=== PATIENT | female | born 1970 | race Asian ===

== ENCOUNTER 2017-08-22 18:53 | Emergency (ER) | payer OTHER ==
[2017-08-22 19:15] VITALS: BP 135/82
[2017-08-22] MEDS ORDERED: Nitrofurantoin Macrocrystals* 50 MG CAP PO ONE (19:52)
[2017-08-22] MEDS ORDERED: Acetaminophen TAB* 325 MG PO ONE (19:52)
--- NOTE | 2017-08-22 19:58 | UC ---
Complaint Female HPI - HPI Summary HPI Summary: 46 year old female here with dysuria and urgency since yesterday. She reports feeling discomfort last night and today developed urgency and frequency. Reports suprapubic pain but no flank pain or back pain. No fever or chills. - History Of Current Complaint Chief Complaint: UCGU Stated Complaint: UNCOMFORTABLE URINATION Time Seen by Provider: 08/22/17 19:31 Hx Obtained From: Patient Hx Last Menstrual Period: 08/18/17 Onset/Duration: Gradual Onset Timing: Constant Severity Initially: Mild Aggravating Factor(s): Urination Alleviating Factor(s): Nothing Associated Signs And Symptoms: Positive: Negative - Allergies/Home Medications Allergies/Adverse Reactions: Allergies Allergy/AdvReac Type Severity Reaction Status Date / Time Amoxicillin Allergy Diarrhea Verified 08/22/17 19:16 Aspirin Allergy Nausea And Verified 08/22/17 19:16 Vomiting PMH/Surg Hx/FS Hx/Imm Hx - Surgical History Surgical History: None - Social History Alcohol Use: None Substance Use Type: None Smoking Status (MU): Never Smoked Tobacco Review of Systems Genitourinary: Dysuria, Frequency, Urgency All Other Systems Reviewed And Are Negative: Yes Physical Exam Triage Information Reviewed: Yes Appearance: Well-Appearing, No Pain Distress Vital Signs: Initial Vital Signs Temp 36.6 C 08/22/17 19:10 Pulse 68 08/22/17 19:10 Resp 18 08/22/17 19:10 BP 135/82 08/22/17 19:10 ENT Exam: Normal Neck: Positive: Supple, Nontender, No Lymphadenopathy Respiratory: Positive: Chest non-tender, Lungs clear, Normal breath sounds, No respiratory distress Cardiovascular: Positive: RRR, No Murmur Abdomen Description: Positive: Other: - supra pubic tenderness with no guarding. Negative: CVA Tenderness (R), CVA Tenderness (L) Skin Exam: Normal Complaint Female Dx - Course Course Of Treatment: patient with signs and symptoms c/w UTI. She has blood in the urine but history and physical no concernn for renal colic. - Differential Dx/Diagnosis Differential Diagnosis/HQI/PQRI: Renal Colic, Ureteral Stone, Urinary Tract Infection Provider Diagnoses: Urinary tract infection Discharge - Discharge Plan Condition: Good Disposition: HOME Prescriptions: Nitrofurantoin Monohyd Macro [Macrobid] 100 mg PO BID #20 cap Patient Education Materials: Urinary Tract Infection in Women (ED) Referrals: No Primary Care Phys,NOPCP [Primary Care Provider] - Additional Instructions: patient walked out before she got her discharge papers and dose of abx. We called and told her to go to the pharmacy to waste picker her rx.
[2017-08-22] MEDS ORDERED: Acetaminophen TAB* 325 MG PO PRN (20:03)
== END 2017-08-22 20:00 | disposition home or self-care (01) ==
LOC: UCEAST 18:53
DX: N39.0 Urinary tract infection, site not specified (principal); R31.9 Hematuria, unspecified; Z88.6 Allergy status to analgesic agent; Z88.1 Allergy status to other antibiotic agents
CPT/HCPCS: 81003; 87077; 87086; 87186; 99202; A9270-GY; G0463

== ENCOUNTER 2018-05-29 14:53 | Emergency (ER) | payer OTHER ==
[2018-05-29 15:07] VITALS: BP 129/77
--- NOTE | 2018-05-29 15:09 | UC ---
Lower Extremity/Ankle HPI - HPI Summary HPI Summary: 47 yo female presents with left great toe injury. She tells me that early this morning she was feeding her dog and dropped his metal dog dish on her big toe. Has had pain in her toe since that time. She is ambulatory, but says she is walking more on her heel due to pain. Denies numbness or tingling. - History of Current Complaint Chief Complaint: UCLowerExtremity Stated Complaint: TOE INJURY Time Seen by Provider: 05/29/18 15:09 Hx Obtained From: Patient Hx Last Menstrual Period: 05/08/18 Severity Initially: Severe Severity Currently: Severe Pain Intensity: 8 Pain Scale Used: 0-10 Numeric Aggravating Factor(s): Standing, Ambulation Alleviating Factor(s): Rest Able to Bear Weight: Yes - Allergies/Home Medications Allergies/Adverse Reactions: Allergies Allergy/AdvReac Type Severity Reaction Status Date / Time amoxicillin Allergy Diarrhea Verified 05/29/18 15:08 aspirin Allergy Nausea And Verified 05/29/18 15:08 Vomiting Home Medications: Home Medications Ibuprofen TAB* [Motrin TAB* 400 MG] 400 mg PO Q6HR PRN 05/29/18 [History Confirmed 05/29/18] PMH/Surg Hx/FS Hx/Imm Hx - Additional Past Medical History Additional PMH: None - Surgical History Surgical History: None - Family History Known Family History: Positive: None - Social History Occupation: Employed Full-time Lives: With Family Alcohol Use: None Substance Use Type: None Smoking Status (MU): Never Smoked Tobacco Review of Systems Constitutional: Negative Skin: Negative Respiratory: Negative Cardiovascular: Negative Musculoskeletal: Other: - Left great toe pain Neurological: Negative Psychological: Negative All Other Systems Reviewed And Are Negative: Yes Physical Exam - Summary Physical Exam Summary: GENERAL: NAD. WDWN. No pain distress. SKIN: No rashes, sores, lesions, or open wounds. CHEST: No accessory muscle use. Breathing comfortably and in no distress. CV: Pulses intact PT and DP. Cap refill <2seconds MSK: LEFT GREAT TOE: Moderate TTP along joint line. FROM with mild pain. No edema. Mild ecchymosis at cuticle. Nail intact. NEURO: Alert. Sensations intact and symmetric B/L LEs PSYCH: Age appropriate behavior. Triage Information Reviewed: Yes Vital Signs: Initial Vital Signs Temp 98.8 F 05/29/18 15:02 Pulse 57 05/29/18 15:02 Resp 16 05/29/18 15:02 BP 129/77 05/29/18 15:02 Pulse Ox 100 05/29/18 15:02 Vital Signs Reviewed: Yes Lower Extremity Course/Dx - Course Course Of Treatment: XR: IMPRESSION: No fracture of the left great toe is noted. Toe vanita taped and post-op shoe provided. Advised to ice the toe and may take ibuprofen prn pain - Differential Dx/Diagnosis Provider Diagnoses: Left great toe pain Discharge - Sign-Out/Discharge Documenting (check all that apply): Patient Departure All imaging exams completed and their final reports reviewed: Yes - Discharge Plan Condition: Stable Disposition: HOME Patient Education Materials: Contusion in Adults (ED) Referrals: No Primary Care Phys,NOPCP [Primary Care Provider] - Additional Instructions: If you develop a fever, shortness of breath, chest pain, new or worsening symptoms - please call your PCP or go to the ED. 1) Rest, Ice, and elevate your foot as much as possible to reduce pain and swelling - Billing Disposition and Condition Condition: STABLE Disposition: Home
--- NOTE | 2018-05-29 15:33 | RAD ---
Indication: Left great toe injury. 3 views of left great toe demonstrates no fracture. No other bone or joint abnormality is identified. No other bone or joint abnormality is noted. IMPRESSION: No fracture of the left great toe is noted.
== END 2018-05-29 16:09 | disposition home or self-care (01) ==
LOC: UCEAST 14:53
DX: M79.675 Pain in left toe(s) (principal); Z88.6 Allergy status to analgesic agent; Z88.0 Allergy status to penicillin
CPT/HCPCS: 99212; G0463

== ENCOUNTER 2019-02-25 00:24 | Emergency (ER) | payer OTHER ==
[2019-02-25] MEDS ORDERED: ALPRAZolam TAB* 0.5 MG PO ONE (01:51)
--- NOTE | 2019-02-25 01:56 | ED ---
HPI Chest Pain - HPI Summary HPI Summary: This patient is a 48 year old F presenting to [facility] accompanied by with a chief complaint of chest pain since the morning of 02/24/19. Pt woke up in the morning and had chest pain, then she went on a walk and said her pain was alleviated. However after going back home at 2030 her pain came back. So she went to take a shower and go to sleep but instead she felt more alert, nervous, and was trembling. She describes the pain as aching. Pt reports that the pain is constant, has a stiff upper back and neck and that she had trouble breathing. She has no home medications. She notes one prior episode of a panic attack. She has no personal or family history of cardiac disease. - History of Current Complaint Chief Complaint: EDChestPainROMI Time Seen by Provider: 02/25/19 01:35 Hx Obtained From: Patient Hx Last Menstrual Period: 05/08/18 Onset/Duration: Started Hours Ago - Began morning of 02/24/19, Still Present Timing: Lasting Hours Initial Severity: Moderate Current Severity: Moderate Pain Intensity: 5 Pain Scale Used: 0-10 Numeric Chest Pain Location: Diffuse Character: Dull/Aching Aggravating Factor(s): Nothing Alleviating Factor(s): Nothing Associated Signs and Symptoms: Positive: Anxiety, Shortness of Breath, Other: - positive: trembling - Allergy/Home Medications Allergies/Adverse Reactions: Allergies Allergy/AdvReac Type Severity Reaction Status Date / Time amoxicillin Allergy Diarrhea Verified 02/25/19 01:54 aspirin Allergy Nausea And Verified 02/25/19 01:54 Vomiting PMH/Surg Hx/FS Hx/Imm Hx Endocrine/Hematology History: Denies: Hx Diabetes, Hx Thyroid Disease Cardiovascular History: Denies: Hx Hypertension Respiratory History: Denies: Hx Asthma, Hx Chronic Obstructive Pulmonary Disease (COPD) GI History: Denies: Hx Ulcer Infectious Disease History: No Infectious Disease History: Denies: Hx Clostridium Difficile, Hx Hepatitis, Hx Human Immunodeficiency Virus (HIV), Hx of Known/Suspected MRSA, Hx Shingles, Hx Tuberculosis, Hx Known/ Suspected VRE, Hx Known/Suspected VRSA, History Other Infectious Disease, Traveled Outside the [place] in Last 30 Days - Family History Known Family History: Negative: Cardiac Disease - Social History Alcohol Use: None Substance Use Type: Reports: None Smoking Status (MU): Never Smoked Tobacco Review of Systems Positive: Other - positive:trembling Positive: Chest Pain Positive: Shortness Of Breath Positive: Other - Positive: Stiff Upper Back and Neck Positive: Anxious All Other Systems Reviewed And Are Negative: Yes Physical Exam - Summary Physical Exam Summary: VITAL SIGNS: Reviewed. GENERAL: Patient is a well-developed and nourished female who is lying comfortable in the stretcher. Patient is not in any acute respiratory distress. HEAD AND FACE: No signs of trauma. No ecchymosis, hematomas or skull depressions. No sinus tenderness. EYES: PERRLA, EOMI x 2, No injected conjunctiva, no nystagmus. EARS: Hearing grossly intact. Ear canals and tympanic membranes are within normal limits. MOUTH: Oropharynx within normal limits. NECK: Supple, trachea is midline, no adenopathy, no JVD, no carotid bruit, no c- spine tenderness, neck with full ROM CHEST: Symmetric, no tenderness at palpation LUNGS: Clear to auscultation bilaterally. No wheezing or crackles. CVS: Regular rate and rhythm, S1 and S2 present, no murmurs or gallops appreciated. ABDOMEN: Soft, non-tender. No signs of distention. No rebound no guarding, and no masses palpated. Bowel sounds are normal. EXTREMITIES: FROM in all major joints, no edema, no cyanosis or clubbing. NEURO: Alert and oriented x 3. No acute neurological deficits. Speech is normal and follows commands. SKIN: Dry and warm Triage Information Reviewed: Yes Vital Signs On Initial Exam: Initial Vitals Temp Pulse Resp BP Pulse Ox 98.4 F 96 22 152/87 100 02/25/19 00:27 02/25/19 00:27 02/25/19 00:27 02/25/19 00:27 02/25/19 00:27 Vital Signs Reviewed: Yes Diagnostics - Vital Signs Vital Signs Temp Pulse Resp BP Pulse Ox 02/25/19 00:27 98.4 F 96 22 152/87 100 - Laboratory Result Diagrams: 02/25/19 01:56 02/25/19 01:56 Lab Statement: Any lab studies that have been ordered have been reviewed, and results considered in the medical decision making process. - EKG 0037 Cardiac Rate: NL - Rate 85 BPM EKG Rhythm: Sinus Rhythm Summary of EKG Findings: EKG reveals sinus rhythm with rate of 85 BPM, normal axis, normal interval, no ischemic changes Re-Evaluation - Re-Evaluation First Eval Re-Evaluation Time: 02:39 Change: Improved Comment: Pt condition improved after xanax; discussed plan to discharge and follow up with human resources temp for outpatient stress test. Chest Pain Course/Dx - Course Course Of Treatment: This patient is a 48 year old F presenting to [facility] accompanied by with a chief complaint of chest pain since the morning of 02/24/19. Pt woke up in the morning and had chest pain, then she went on a walk and said her pain was alleviated. However after going back home at 2029 her pain came back. So she went to take a shower and go to sleep but instead she felt more alert, nervous, and was trembling. She describes the pain as aching. Pt reports that the pain is constant, has a stiff upper back and neck and that she had trouble breathing. She has no home medications. She notes one prior episode of a panic attack. She has no personal or family history of cardiac disease. Blood work obtained, trop 0. The abnormal values include MPV 7.3, potassium 3.4, glucose 116. During ED course pt received Klor Con Er Tab 40 meq PO and Xanax Tab 0/5 mg PO. Pt felt better after Xanax and was agreeable to discharge and follow up with human resources temp for outpatient stress test - Diagnoses Provider Diagnoses: Chest pain, Anxiety Discharge - Sign-Out/Discharge Documenting (check all that apply): Patient Departure - Discharge Patient Received Moderate/Deep Sedation with Procedure: No - Discharge Plan Condition: Stable Disposition: HOME Patient Education Materials: Chest Pain (ED), Anxiety (ED) Referrals: Reji Saab MD [Primary Care Provider] - Care [facility] [Outside] - 3 Days Jude Roque MD [Medical Doctor] - 3 Days Additional Instructions: Follow up with human resources temp within 3 days for outpatient stress test. Please return to the ED immediately for worsening or concerning symptoms. - Attestation Statements Document Initiated by Scribe: Yes Documenting Scribe: ELIZABETH ILRA Provider For Whom Graceibe is Documenting (Include Credential): GAIL COATS MD Scribe Attestation: ELIZABETH Napoles, scribed for GAIL COATS MD on 02/25/19 at 0320. Status of Scribe Document: Ready
[2019-02-25 02:03] LABS: ABS Basophils 0.1 10^3/ul (0-0.2); ABS Eosinophils 0.2 10^3/ul (0-0.6); ABS Lymphocytes 1.8 10^3/ul (1.0-4.8); ABS Monocytes 0.5 10^3/ul (0-0.8); ABS Neutrophils 4.4 10^3/ul (1.5-7.7); Eosinophil % 2.3 %; Hematocrit 36 % (35-47); Hemoglobin 12.4 g/dL (12.0-16.0); Lymphocyte % 26.2 %; Mean Corpuscular HGB Conc 35 g/dL (31-36); Mean Corpuscular Hemoglobin 31 pg (27-31); Mean Corpuscular Volume 90 fL (80-97); Mean Platelet Volume 7.3 fL (7.4-10.4); Platelet Count 207 10^3/uL (150-450); Red Blood Count 3.97 10^6 /uL (3.70-4.87); Red Cell Distribution Width 13 % (10-15); White Blood Count 6.9 10^3/uL (3.5-10.8)
[2019-02-25 02:21] LABS: Albumin 4.1 g/dL (3.2-5.2); Albumin/Globulin Ratio 1.3 (1-3); BUN/Creatinine Ratio 16.7 (8-20); Calcium 9.7 mg/dL (8.6-10.3); EGFR African American 80.5 (>60); EGFR Non-African American 66.5 (>60); Globulin 3.1 g/dL (2-4); Potassium 3.4 mmol/L (3.5-5.0); Total Bilirubin 0.5 mg/dL (0.2-1.0); Total Protein 7.2 g/dL (6.4-8.9)
[2019-02-25] MEDS ORDERED: Potassium Chlor TAB* 20 MEQ TAB.ER PO ONE (02:37)
[2019-02-25 02:59] VITALS: BP 124/71
== END 2019-02-25 03:07 | disposition home or self-care (01) ==
LOC: ED 00:24
DX: R07.9 Chest pain, unspecified (principal); R06.02 Shortness of breath; F41.9 Anxiety disorder, unspecified; Z88.0 Allergy status to penicillin; Z88.6 Allergy status to analgesic agent; M54.2 Cervicalgia
CPT/HCPCS: 36415; 80053; 83735; 84484; 85025; 85610; 85730; 93005; 99282; A9270-GY

== ENCOUNTER 2019-02-27 19:21 | Emergency (ER) | payer OTHER ==
[2019-02-27 19:41] VITALS: BP 140/67
[2019-02-27] MEDS ORDERED: hydrOXYzine HCL TAB* 25 MG PO ONE (20:09)
--- NOTE | 2019-02-27 20:26 | UC ---
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 She states that she started feeling anxious after this and had to really concentrate on her breathing. She denied any chest pain. She denies any headache. He states that 4 days ago she was seen in the emergency room for chest pain and was diagnosed with anxiety. She was given a short course of Xanax and this did seem to help her anxiety. Since her ER visit she has seen her gas attendant. She had an order for blood work to be drawn but has not yet had it drawn. She had blood work done in the emergency room. She states her gas attendant is can be checking other blood work including thyroid functions. She has not had any chest pain today. States that about a month ago she received an injection to her left shoulder. She is also given a short course of steroids. He states that soon after that steroid injection she started having some abdominal issues. Occasionally it felt like food was getting stuck in her esophagus. She has had some decreased appetite. She was started on a medicine for reflux and she states her symptoms seem to been improving. She desires to take something tonight so her anxiety will not worsen. Seaonal allergies acting up using flonase has post nasal drip - History of Current Complaint Chief Complaint: UCGeneralIllness Stated Complaint: FEELING SHAKY, ANXIOUS Time Seen by Provider: 02/27/19 19:47 Hx Obtained From: Patient Hx Last Menstrual Period: october 2018 Onset/Duration: Sudden Onset, Lasting Hours Timing: Constant Severity Initially: Severe Severity Currently: Mild Pain Intensity: 0 Pain Scale Used: 0-10 Numeric Character: Cough: Nonproductive Aggravating Factors: Nothing Alleviating Factors: Nothing Associated Signs And Symptoms: Positive: Nasal Congestion - Allergies/Home Medications Allergies/Adverse Reactions: Allergies Allergy/AdvReac Type Severity Reaction Status Date / Time amoxicillin Allergy Diarrhea Verified 02/27/19 19:30 aspirin Allergy Nausea And Verified 02/27/19 19:30 Vomiting Home Medications: Home Medications Omeprazole 20 mg PO DAILY 02/27/19 [History Confirmed 02/27/19] PMH/Surg Hx/FS Hx/Imm Hx Previously Healthy: Yes - Surgical History Surgical History: None - Family History Known Family History: Positive: None, Non-Contributory Negative: Cardiac Disease - Social History Alcohol Use: None Substance Use Type: None Smoking Status (MU): Never Smoked Tobacco Review of Systems All Other Systems Reviewed And Are Negative: Yes Constitutional: Positive: Negative, Fatigue Eyes: Positive: Negative ENT: Positive: Negative Respiratory: Positive: Negative Cardiovascular: Positive: Negative Gastrointestinal: Positive: Abdominal Pain, Other - anorexia Genitourinary: Positive: Negative Motor: Positive: Negative Neurovascular: Positive: Negative Musculoskeletal: Positive: Negative Neurological: Positive: Negative Psychological: Positive: Anxious Physical Exam Triage Information Reviewed: Yes Appearance: Well-Appearing, No Pain Distress, Well-Nourished Vital Signs: Initial Vital Signs Temp 98.9 F 02/27/19 19:36 Pulse 64 02/27/19 19:36 Resp 18 02/27/19 19:36 BP 140/67 02/27/19 19:36 Pulse Ox 99 02/27/19 19:36 Vital Signs Reviewed: Yes Eyes: Positive: Conjunctiva Clear ENT: Positive: Hearing grossly normal, Pharynx normal, Nasal congestion, TMs normal, Uvula midline. Negative: Nasal drainage, Tonsillar swelling, Tonsillar exudate, Trismus, Muffled voice, Hoarse voice, Dental tenderness, Sinus tenderness Dental Exam: Normal Neck: Positive: Supple, Nontender, No Lymphadenopathy, Other: - no thyromegaly Respiratory: Positive: Lungs clear, Normal breath sounds, No respiratory distress, No accessory muscle use Cardiovascular: Positive: RRR, No Murmur Abdomen Description: Negative: Nontender - tender epigastrium and slight RLQ tenderness Bowel Sounds: Positive: Present Musculoskeletal: Positive: ROM Intact, No Edema Neurological: Positive: Alert Psychological Exam: Normal Skin Exam: Normal Respiratory Course/Dx - Differential Dx/Diagnosis Provider Diagnosis: Anxiety Discharge - Sign-Out/Discharge Documenting (check all that apply): Patient Departure All imaging exams completed and their final reports reviewed: No Studies - Discharge Plan Condition: Stable Disposition: HOME Prescriptions: clonazePAM [Clonazepam] 0.5 mg PO Q8HR PRN #9 tablet MDD 3 PRN Reason: Anxiety - Severe Patient Education Materials: Anxiety (ED) Referrals: Yassine Daugherty MD [Medical Doctor] - 1 Week (due to your abdominal symptoms I suggest gi consult) Additional Instructions: I suggest you contact your gas attendant in AM to discuss your symptoms and follow up - Billing Disposition and Condition Condition: STABLE Disposition: Home
== END 2019-02-27 20:25 | disposition home or self-care (01) ==
LOC: UCEAST 19:21
DX: F41.9 Anxiety disorder, unspecified (principal)
CPT/HCPCS: 99212; A9270-GY; G0463